=== PATIENT | male | born 1960 | race African-American/Black ===

== ENCOUNTER 2019-07-12 20:32 | Emergency (ER) | payer SELFPAY ==
[~2019-07-12] VITALS: Ht 180.3 cm; Wt 90.9 kg
[2019-07-12 20:42] VITALS: Ht 180.3 cm; Wt 90.9 kg
[2019-07-12 20:57] LABS: APPEARANCE CLEAR (CLEAR); BILIRUBIN NEGATIVE (NEGATIVE); COLOR YELLOW (YELLOW); GLUCOSE NEGATIVE (NEGATIVE); KETONE NEGATIVE (NEGATIVE); NITRITE NEGATIVE (NEGATIVE); PROTEIN NEGATIVE (NEGATIVE); UROBILINOGEN NORMAL (NORMAL)
[2019-07-12 21:13] LABS: UDS - AMPHET NEGATIVE QUAL (NEGATIVE); UDS - BARB NEGATIVE QUAL (NEGATIVE); UDS - BENZO NEGATIVE QUAL (NEGATIVE); UDS - COCAINE NEGATIVE QUAL (NEGATIVE); UDS - OPIATE NEGATIVE QUAL (NEGATIVE); UDS - PCP NEGATIVE QUAL (NEGATIVE); UDS - THC NEGATIVE QUAL (NEGATIVE)
[2019-07-12 21:24] LABS: BASOPHILS 0.3 % (0-2); EOSINOPHILS 0.7 % (0-7); HEMATOCRIT 44.6 % (42.0-54.0); HEMOGLOBIN 15.7 g/dL (13.5-17.5); IMMATURE GRANULOCYTES 0.5 % (0-5); LYMPHOCYTES 27.6 % (15-50); MCH 32.3 pg (26.0-34.0); MCHC 35.2 g/dL (31.0-37.0); MCV 91.8 fL (80.0-100.0); MEAN PLATELET VOLUME 9.2 fL (7.4-10.4); MONOCYTES 9.6 % (2-11); NEUTROPHILS 61.3 % (40-80); PLATELET COUNT 265 10x3/uL (130-400); RBC 4.86 10x6/uL (4.20-6.10); RDW 13.4 % (11.5-14.5); WBC 9.6 10x3/uL (4.8-10.8)
--- NOTE | 2019-07-12 21:26 | NUR ---
PATIENT IN ER 23, WITH SUICIDIAL IDEATIONS, HE SAYS THAT HE HEARD VOICES TELL HIM TO JUMP IN FRONT OF A CAR. HE HAS ATTEMPTED SUICIDE SEVERAL TIMES IN HIS LIFE BY VARIOUS WAYS, HE HAS A DIAGNOSIS OF PARANOID SCHIZOPHRENIA, HE HAS POOR EYE CONTACT. HE SAYS THAT HE IS FROM [place] AND JUST RECENTLY GOT OUT OF A PSYCHIATRIC FACILITY FOR THIS SAME THING. HE IS HOMELESS AT THIS TIME. LITERATURE GIVEN TO HIM WITH A 1-800 PHONE NUMBER ON IT FOR HIM TO USE FOR THE FUTURE. PATIENT VERBALIZES UNDERSTANDING. SAFETY PLAN IN PLACE, ITEMS MOVED OUT OF ROOM, BLUE SCRUBS ON. PT. IS PLACED ON ONE TO ONE.
[2019-07-12 21:59] LABS: ANION GAP 12.4 mmol/L (8-16); CALCIUM 9.5 mg/dL (8.5-10.1); CARBON DIOXIDE 28.7 mmol/L (21.0-32.0); CREATININE - SERUM 1.1 mg/dL (0.6-1.3); POTASSIUM - SERUM 4.1 mmol/L (3.5-5.1)
[2019-07-12 22:03] LABS: ALBUMIN 3.9 g/dL (3.4-5.0); BILIRUBIN - TOTAL 0.61 mg/dL (0.2-1.3)
[2019-07-13 04:11] VITALS: BP 132/84
== END 2019-07-13 04:50 ==
LOC: D.ER 20:32
PROVIDERS: Emergency Medicine
DX: R45.851 Suicidal ideations (principal)